=== PATIENT | female | born 1965 | race Caucasian/White ===

== ENCOUNTER 2017-09-25 17:12 | Emergency (ER) | payer OTHER ==
[2017-09-25] MEDS ORDERED: PERCOCET 5/325M1 TAB PO (18:06)
[2017-09-25 18:27] VITALS: BP 155/70
== END 2017-09-25 19:00 | disposition home or self-care (01) | DRG 563 ==
LOC: ED 17:12
PROC: 2W3DX1Z Immobilization of Left Lower Arm using Splint (ICD-10-PCS; principal; 2017-09-25)
DX: S52.502A Unspecified fracture of the lower end of left radius, initial encounter for closed fracture (principal); S52.612A Displaced fracture of left ulna styloid process, initial encounter for closed fracture; W01.0XXA Fall on same level from slipping, tripping and stumbling without subsequent striking against object, initial encounter; Y93.89 Activity, other specified; Y92.007 Garden or yard of unspecified non-institutional (private) residence as the place of occurrence of the external cause